=== PATIENT | male | born 1960 | race Two or more races ===

== ENCOUNTER 2024-06-19 14:29 | Inpatient (IN) | payer OTHER, MEDICARE, MEDICAID ==
[~2024-06-19] VITALS: Ht 182.9 cm; Wt 92.4 kg
[~2024-06-19 14:29] MED LIST: CARV6.2551 PO; CHOL50007 PO; FURO40TA4 PO; LOSA-533 PO; MAGN400T6 PO; SPIR25TA8 PO
--- NOTE | 2024-06-19 14:43 | ED.PDOC ---
Altered Mental Status HPI Comments 63 year old male JADEN presents to the ED with chief complaint of ALOC. EMS reports patient is coming from an assisted living facility where a poor history of obtained by staff with their initial call noting cardiac arrest with apneic episodes. EMS relays that staff informed them patient was last seen normal and a ble to speak/respond at 8am, but over the past 4 hours, patient became increasingly confused and altered until 30 minutes prior to their arrival, he began to experience apneic episodes. EMS states patient is only able to respond to painful stimuli and is non-verbal at this time. EMS note patient's BG was 106 and he is currently a full code. Patient unable to provide any history at this time. Time Seen by MD: 14:39 Reviewed Notes: Nurses Notes, Boom Worker Notes, Medications, Allergies Information Source: Emergency Med Personnel Mode of Arrival: EMS Severity: Unresponsive Timing: Hours Duration: Since onset Prehospital treatment: Accucheck, Oxygen Quality: Decreased Alertness, Change in Behavior Recent: None History of: CVA Past Medical History PAST MEDICAL HISTORY: CVA, NE, PE Surgical History: Unknown Family History Family History: Reviewed,noncontributory to illness Social History Smoker: Non-Smoker Alcohol: Denies ETOH Use Drugs: Denies Drug Use Lives In: Assisted Care Unable to Obtain due to: Altered Mental Status All Other Systems: Reviewed and Negative Physical Exam General Appearance: Moderate Distress, Obese HEENT: Normal ENT Inspection, Pharynx Normal, TMs Normal Neck: Full Range of Motion, Non-Tender, Normal, Normal Inspection Respiratory: No Accessory Muscle Use, Rales, Respiratory Distress Cardiovascular: No Edema, No JVD, No Murmur, No Gallop, Normal Peripheral Pulses, Regular Rate/Rhythm Breast Exam: Deferred Gastrointestinal: No Organomegaly, Non Tender, No Pulsatile Mass, Normal Bowel Sounds, Soft Genitalia: Deferred Pelvic: Deferred Rectal: Deferred Extremities: No calf tenderness, Normal capillary refill, Pedal edema Musculoskeletal : Apperance: Normal Neurologic: rn residential II-XII nml as Tested, Motor Weakness, Normal Affect, Normal Mood, No Sensory Deficits, Other (The patient was confused) Cerebellar Function: Unable to Test Reflexes: Normal Skin: Dry, Pallor, Warm Lymphatic: No Adenopathy EKG EKG : Pulse Rate (adult): 80 [place]: Normal Cardiac Rhythm: NSR ST: Nonsp Was a procedure done? Was a procedure done?: No Sedation Sedation?: No Differential Diagnosis (ALOC) Differential Diagnosis: Dehydration, Hypoglycemia, Hypoxemia, CVA X-Ray, Labs, Meds, VS Vital Signs Date Time Temp Pulse Resp B/P (MAP) Pulse Ox O2 Delivery O2 Flow Rate FiO2 06/19/24 15:51 147/105 06/19/24 15:36 91 06/19/24 14:33 80 Lab Test 06/19/24 16:06 06/19/24 15:12 06/19/24 15:08 Range/Units Troponin I High Sensitivity Pending 19 </=54 ng/L Blood Gas Specimen Type Arterial Blood Gas Sample Site Right brachial Blood Gas Patient Temperature 37.0 Arterial Blood Date Drawn [id number] Arterial Blood pH 7.454 H 7.350-7.450 Arterial Blood Partial Pressure CO2 24.4 L 35.0-48.0 mmHg Arterial Blood Partial Pressure O2 65.5 L 83.0-108.0 mmHg Arterial Blood HCO3 16.7 L 21.0-28.0 mmol/L Arterial Blood Oxygen Saturation 94.0 94.0-98.0 % Arterial Blood Base Excess -4.6 L -2.0-3.0 mmol/L Arterial Blood Oxyhemoglobin 92.2 L 94.0-98.0 % Arterial Blood Carboxyhemoglobin 1.4 0.5-1.5 % Arterial Blood Methemoglobin 0.5 0.0-1.5 % Mitesh Test N/a Blood Gas Total Hemoglobin 18.40 *H 13.5-17.5 g/dL Blood Gas Modality Room air FiO2 % 21.0 Blood Gas Critical Value Read Back Yes Blood Gas Notified Whom Dr. bonilla Blood Gas Notified Time [id number] Blood Gas Notified By White Blood Count 9.3 4.4-10.8 10^3/uL Red Blood Count 5.94 H 4.5-5.90 10^6/uL Hemoglobin 17.9 H 13.5-17.5 g/dL Hematocrit 56.7 H 41.0-53.0 % Mean Corpuscular Volume 95.4 80.0-100.0 fL Mean Corpuscular Hemoglobin 30.2 28.0-32.0 pg Mean Corpuscular Hemoglobin Concent 31.6 L 32.0-36.0 g/dL Red Cell Distribution Width 21.8 H 11.8-14.3 % Platelet Count 231 140-450 10^3/uL Mean Platelet Volume 9.6 6.9-10.8 fL Neutrophils (%) (Auto) 77.2 37.0-80.0 % Lymphocytes (%) (Auto) 11.7 10.0-50.0 % Monocytes (%) (Auto) 9.0 0.0-12.0 % Eosinophils (%) (Auto) 1.2 0.0-7.0 % Basophils (%) (Auto) 0.9 0.0-2.0 % Neutrophils # (Auto) 7.2 1.6-8.6 10 ^3/uL Lymphocytes # (Auto) 1.1 0.4-5.4 10 ^3/uL Monocytes # (Auto) 0.8 0-1.3 10 ^3/uL Eosinophils # (Auto) 0.1 0-0.8 10 ^3/uL Basophils # (Auto) 0.1 0-0.2 10 ^3/uL Nucleated Red Blood Cells 0.1 % Sodium Level 151 H 136-145 mmol/L Potassium Level 4.9 3.5-5.1 mmol/L Chloride Level 116 H 98-107 mmol/L Carbon Dioxide Level 24 20-31 mmol/L Anion Gap 11 5-15 Blood Urea Nitrogen 16 9-23 mg/dL Creatinine 1.18 0.700-1.30 mg/dL Glomerular Filtration Rate Calc 69 >90 mL/min BUN/Creatinine Ratio 13.6 10.0-20.0 Serum Glucose 97 74-106 mg/dL Lactic Acid Level 4.1 *H 0.4-2.0 mmol/L Calcium Level 10.2 8.7-10.4 mg/dL Plasma/Serum Blood Alcohol 7.3 <10 mg/dL Current Medications Medications (Trade) Dose Ordered Sig/Rose Marie Route Start Time Stop Time Status Last Admin Naloxone HCl (Narcan) 2 mg ONCE ONCE IV 06/19/24 15:30 06/19/24 15:31 DC 06/19/24 14:46 Furosemide (Lasix Injection) 40 mg ONCE ONCE IV 06/19/24 15:45 06/19/24 15:46 DC 06/19/24 15:51 Ceftriaxone Sodium 50 ml @ 100 mls/hr ONCE ONCE IV 06/19/24 16:30 06/19/24 16:59 06/19/24 16:[address] indicates: Hypodense changes in the superior right frontal lobe with loss of valle-white matter differentiation suggestive of an age-indeterminate infarct. Clinical correlation and further evaluation with MRI brain with diffusion-weighted imaging is recommended. There is no acute intracranial hemorr trisha. The patient had a chest x-ray done and it shows the pulmonary vascular congestion with possible failure The patient was given Lasix 40 mg IV push The patient's lactic acid level is elevated The patient was given vancomycin and Rocephin Initially the patient was given Narcan for the altered mental status with no signs of any change The patient's CBC is within normal limits The chemistry panel is within normal limits The ABG shows a pCO2 of 24 and a PO2 of 65 The patient was being placed on oxygen at this time. At this time, the patient will be admitted to the hospitalist The diagnosis is most likely a combination of sepsis and acute on chronic diastolic heart failure. Images Reviewed?: Images reviewed and evaluated by me Time of 1ST Reevaluation: 16:42 Reevaluation 1ST: Improved Patient Education/Counseling: Pt Unresponsive Family Education/Counseling: No Family Present Departure 1 Departure Time of Disposition: 16:39 Impression: Primary Impression: Altered mental status Qualified Codes: R41.82 - Altered mental status, unspecified Additional Impression: Acute on chronic diastolic heart failure Disposition: ADMITTED INPATIENT Admit to: [facility] Condition: Fair Critical Care Note Critical Care Time?: Yes (45 min-critical care time only) Stability Stability form required: Yes Unstable for transfer: Telemetry monitoring (Telemetry monitoring required), ED Physician Assesment (Clinical assesment) Heart Score Heart Score: Heart Score Response (Comments) Value History N/A 0 EKG N/A 0 Age N/A 0 Risk Factors N/A 0 Troponin N/A 0 Total 0 I personally scribed for YON BONILLA MD ([email or web address]) on 06/19/24 at 14:43. Electronically submitted by Chas Guerrero ([email or web address]). I personally scribed for YON BONILLA MD ([email or web address]) on 06/19/24 at 15:16. Electronically submitted by Chas Guerrero ([email or web address]). YON BONILLA MD Jun 19, 2024 14:43
[2024-06-19] MEDS: NALOXONE HCL 1MG/ML 2ML SYRINGE ONE (14:45)
[2024-06-19] MEDS: NALOXONE HCL 1MG/ML 2ML SYRINGE IV ONE (14:46)
--- NOTE | 2024-06-19 15:12 | DVH ---
EXAM: CT HEAD WITHOUT CONTRAST HISTORY: aloc COMPARISON: None TECHNIQUE: Axial images of the head were obtained and reformatted in coronal and sagittal planes. All CT scans at this medical facility are performed using dose modulation techniques as appropriate t o a performed exam including the following: Automated exposure control was utilized; adjustment of th e MA and/or KV according to patient size; and use of iterative reconstruction technique. CT Dose: CTDI volume is 59 mGy. Dose-length product is 1295 mGy*cm FINDINGS: The CT images are degraded by motion artifact. There is dugh-ex-yibhmuho generalized parenchymal volu me loss. There are hypodense changes in the superior right frontal lobe with loss of valle-white matte r differentiation (axial images 54 through 56). This is suggestive of an age-indeterminate infarct. T here is a small chronic infarct adjacent to the frontal horn of the right lateral ventricle. There is no evidence of acute intracranial hemorrhage, mass, mass effect midline shift. There is no hydroceph alus or extra-axial fluid collection. The visualized paranasal sinuses and mastoid air cells are clear. The calvarium is intact. IMPRESSION: 1. Hypodense changes in the superior right frontal lobe with loss of valle-white matter differentiatio n suggestive of an age-indeterminate infarct. Clinical correlation and further evaluation with MRI br ain with diffusion-weighted imaging is recommended. There is no acute intracranial hemorrhage. HS:Y
[2024-06-19 15:15] VITALS: PULSE 93; RESP 52; O2SAT 74
[2024-06-19 15:25] LABS: Base Excess -4.6 mmol/L (-2.0-3.0)
[2024-06-19] MEDS: NALOXONE HCL 0.4 MG/ML VIAL IV ONE (15:25)
--- NOTE | 2024-06-19 15:26 | DVH ---
CHEST RADIOGRAPH Indication: aloc Technique: Single frontal view of the chest was obtained Comparison: None FINDINGS: Lines and Tubes: None Lungs: Diffuse interstitial prominence with right basilar opacification and obscuration of the right hemidiaphragm. No pneumothorax. Cardiomediastinal contours: Moderate cardiomegaly Bones: No acute osseous abnormality. IMPRESSION: Moderate cardiomegaly with pulmonary vascular congestion and small right-sided pleural effusion.
[2024-06-19 15:39] LABS: Basophils # (auto) 0.1 10 ^3/uL (0-0.2); Basophils % (auto) 0.9 % (0.0-2.0); Eosinophils # (auto) 0.1 10 ^3/uL (0-0.8); Hemoglobin 17.9 g/dL (13.5-17.5); Mean Corpuscular Hgb Conc. 31.6 g/dL (32.0-36.0); Monocytes # (auto) 0.8 10 ^3/uL (0-1.3); Neutrophils # (auto) 7.2 10 ^3/uL (1.6-8.6)
--- NOTE | 2024-06-19 15:39 | ECG ---
[facility] Test Date: 2024-06-19 Test Time: 15:36:52 Pat Name: KRISTAL QUINONES Department: er Room: 0251T Gender: M Groutman: marie : 1960 Requested By: YON IRELAND Order Number: [id number] Reading MD: Rios Viera Measurements Intervals [place] Rate: 91 P: 38 WI: 186 QRS: 154 QRSD: 107 T: -5 QT: 383 QTc: 472 Interpretive Statements Sinus rhythm Probable left atrial enlargement Inferior infarct, old Anterior infarct, old Electronically Signed On 06-22-2024 10:24:06 PST by Rios Viera Please click the below link to view image of tracing.
[2024-06-19 15:41] LABS: Eosinophils % (auto) 1.2 % (0.0-7.0); Lymphocytes # (auto) 1.1 10 ^3/uL (0.4-5.4); Lymphocytes % (auto) 11.7 % (10.0-50.0); Mean Corpuscular Hemoglobin 30.2 pg (28.0-32.0); Mean Corpuscular Volume 95.4 fL (80.0-100.0); Neutrophils % (auto) 77.2 % (37.0-80.0); Nucleated Red Blood Cells % 0.1 %; Platelet Count (auto) 231 10^3/uL (140-450); Red Blood Cells 5.94 10^6/uL (4.5-5.90); White Blood Cell 9.3 10^3/uL (4.4-10.8)
[2024-06-19 15:45] LABS: Hematocrit 56.7 % (41.0-53.0); Red Cell Distribution Width 21.8 % (11.8-14.3)
[2024-06-19] MEDS: FUROSEMIDE 40 MG/4 ML VIAL IV ONE (15:51)
[2024-06-19 15:52] LABS: Potassium 4.9 mmol/L (3.5-5.1)
[2024-06-19 15:53] LABS: Anion Gap 11 (5-15); Calcium 10.2 mg/dL (8.7-10.4); Carbon Dioxide 24 mmol/L (20-31)
[2024-06-19 15:58] LABS: BUN/Creatinine Ratio 13.6 (10.0-20.0); Blood Alcohol 7.3 mg/dL (<10); Blood Urea Nitrogen 16 mg/dL (9-23); Glucose 97 mg/dL (74-106)
[2024-06-19 16:00] LABS: Chloride 116 mmol/L (98-107); Sodium 151 mmol/L (136-145)
[2024-06-19 16:18] LABS: Lactic Acid w/Reflex 4.1 mmol/L (0.4-2.0)
[2024-06-19] MEDS: cefTRIAXone 1GM/50ML D5W 50 ML IV ONE (16:39)
[2024-06-19] MEDS: VANCOMYCIN 1GM/250ML KIT 250 ML IV ONE (16:51)
[2024-06-19] MEDS: SODIUM CHLORIDE 0.9% 500 ML IV ONE (16:52)
[2024-06-19 17:03] LABS: Urine Bacteria None Seen /hpf (None Seen)
[2024-06-19 17:24] LABS: Urine Blood Negative /uL (Negative); Urine Clarity Clear (Clear); Urine Color Yellow (Yellow); Urine Hyaline Cast FEW /lpf (0 - 2); Urine Mucus FEW (None Seen); Urine Protein, UAD 1+ (Negative); Urine Specific Gravity 1.018 (1.001-1.035); Urine Squamous Epithelial Cell None Seen /hpf (<5); Urine Urobilinogen 4 mg/dL (Negative); Urine WBC 5 /hpf (0 - 3); Urine pH 6.5 (5.0-9.0)
[2024-06-19 17:32] LABS: Amphetamine Screen, Urine Neg (NEGATIVE); Barbiturate Scree,Urine Neg (NEGATIVE); Benzodiazephine Screen, Urine Neg (NEGATIVE); Cannabinoid Screen, Urine Pos (NEGATIVE); Cocaine Screen, Urine Neg (NEGATIVE); Opiate Scree,Urine Pos (NEGATIVE); Phencyclidine Screen, Urine Neg (NEGATIVE)
[2024-06-19] MEDS ORDERED: ONDANSETRON HCL 4 MG/2 ML VIAL IV PRN (19:15)
[2024-06-19] MEDS ORDERED: MORPHINE SULFATE INJ 2 MG/ml SYRG IV PRN (19:15)
[2024-06-19] MEDS ORDERED: NITROGLYCERIN 0.4 MG SL TAB SL PRN (19:15)
[2024-06-19 19:30] VITALS: PULSE 71; RESP 23; O2SAT 100
[2024-06-19 21:11] VITALS: BP 133/85; PULSE 71; RESP 18; TEMP 98.2; O2SAT 96
--- NOTE | 2024-06-19 22:52 | ECG ---
[facility] Test Date: 2024-06-19 Test Time: 14:33:48 Pat Name: KRISTAL QUINONES Department: er [facility] Gender: M Global Position System Technician: marie : 1960 Requested By: YON IRELAND Order Number: [id number] Reading MD: Rios Viera Measurements Intervals [place] Rate: 80 P: 132 CO: 188 QRS: 17 QRSD: 109 T: 186 QT: 420 QTc: 485 Interpretive Statements Sinus rhythm Probable left atrial enlargement Anterior infarct, old Nonspecific T abnormalities, lateral leads Electronically Signed On 06-22-2024 10:24:04 PST by Rios Viera Please click the below link to view image of tracing.
[2024-06-20] VITALS (7 sets, daily range): BP systolic 107–147; BP diastolic 64–94; PULSE 63–79; RESP 18–24; TEMP 96.4–98.9; O2SAT 94–98
--- NOTE | 2024-06-20 04:51 | DVHHP2 ---
History of Present Illness Reason for Visit: Altered mental status. History of Present Illness 63-year-old male presents for evaluation of altered mental status. Patient presented from an assisted living facility after staff noted patient becoming progressively more confused and having apneic episodes. Patient currently nonve rbal. No further history could be obtained at the moment. Past Medical History PE, mi, CVA,? Dementia Past Surgical History Unknown Family History Unknown Lives: [facility] Review of Systems Review of Systems Review of systems are limited due to the patient's altered mental status. Allergies: Coded Allergies: Codeine (Verified Allergy, Unknown, 06/19/24) Ibuprofen (Verified Allergy, Unknown, 06/19/24) Medications Current Medications Medications Dose Ordered Sig/Rose Marie Route Start Time Stop Time Status Last Admin Dose Admin Ondansetron HCl 4 mg Q4HP PRN IV 06/19/24 19:15 Enoxaparin Sodium 40 mg DAILY SC 06/20/24 10:00 Acetaminophen 650 mg Q6HP PRN PO 06/19/24 19:15 Nitroglycerin 0.4 mg Q5MINP PRN SL 06/19/24 19:15 Morphine Sulfate 2 mg Q30M PRN IV 06/19/24 19:15 Exam Vital Signs Vital Signs Date Time Temp Pulse Resp B/P (MAP) Pulse Ox O2 Delivery O2 Flow Rate FiO2 06/20/24 01:00 98.0 79 20 128/72 (90) 95 98.0 06/19/24 21:11 Nasal Cannula* 2 28 Exam Gen: 63-year-old male in mild distress Skin: Warm, dry, normal color and texture, no rash. HEENT: Normocephalic atraumatic, mucous membranes moist and pink. Neck: Cervical and supraclavicular nodes normal without enlargement, trachea is midline, thyroid gland is normal without masses. Pulmonary: Clear to auscultation and percussion bilaterally. Cardiac: Regular rate and rhythm. No murmur Abdomen: Soft, nontender, nondistended, bowel sounds present all 4 quadrants, no guarding, no rigidity, no organomegaly. Extremities: No cyanosis, clubbing, no edema Neuro: Lethargic, no focal motor deficits. Labs/Xrays ORDERING PHYSICIAN: YON IRELAND MD PROCEDURE(s): CXRP - CHEST PORTABLE REASON: aloc ORDER NUMBER(s): [id number], ACCESSION NUMBER(s): [id number] CHEST RADIOGRAPH Indication: aloc Technique: Single frontal view of the chest was obtained Comparison: None FINDINGS: Lines and Tubes: None Lungs: Diffuse interstitial prominence with right basilar opacification and obscuration of the right hemidiaphragm. No pneumothorax. Cardiomediastinal contours: Moderate cardiomegaly Bones: No acute osseous abnormality. IMPRESSION: Moderate cardiomegaly with pulmonary vascular congestion and small right-sided pleural effusion. RING PHYSICIAN: YON IRELAND MD PROCEDURE(s): HWOCT - HEAD WITHOUT CONTRAST REASON: aloc ORDER NUMBER(s): [id number], ACCESSION NUMBER(s): [id number] EXAM: CT HEAD WITHOUT CONTRAST HISTORY: aloc COMPARISON: None TECHNIQUE: Axial images of the head were obtained and reformatted in coronal and sagittal planes. All CT scans at this medical facility are performed using dose modulation techn iques as appropriate to a performed exam including the following: Automated exposure control was utilized; adjustment of the MA and/or KV according to patient size; and use of iterative reconstruction technique. CT Dose: CTDI volume is 59 mGy. Dose-length product is 1295 mGy*cm FINDINGS: The CT images are degraded by motion artifact. There is [id number] generalized parenchymal volume loss. There are hypodense changes in the superior right frontal lobe with loss of valle-white matter differentiation (axial images 54 through 56). This is suggestive of an age-indeterminate infarct. There is a small chronic infarct adjacent to the frontal horn of the right lateral ventricle. There is no evidence of acute intracranial hemorrhage, mass, mass effect midline shift. There is no hydrocephalus or extra-axial fluid collection. The visualized paranasal sinuses and mastoid air cells are clear. The calvarium is intact. IMPRESSION: 1. Hypodense changes in the superior right frontal lobe with loss of valle-white matter differentiation suggestive of an age-indeterminate infarct. Clinical correlation and further evaluation with MRI brain with diffusion-weighted imaging is recommended. There is no acute intracranial hemorrhage. HS:Y Labs Test 06/19/24 18:06 06/19/24 17:23 06/19/24 17:02 06/19/24 15:12 Range/Units Lactic Acid Level 1.3 0.4-2.0 mmol/L Troponin I High Sensitivity 18 </=54 ng/L POC Glucose 132 H 70-106 mg/dl Urine Color Yellow Yellow Urine Clarity Clear Clear Urine pH 6.5 5.0-9.0 Urine Specific [place] 1.018 1.001-1.035 Urine Protein 1+ H Negative Urine Ketones Negative Negative Urine Blood Negative Negative /uL Urine Nitrite Negative Negative Urine Bilirubin Negative Negative Urine Urobilinogen 4 H Negative mg/dL Urine Leukocyte Esterase Negative Negative /uL Urine RBC 1 0 - 3 /hpf Urine WBC 5 0 - 3 /hpf Urine Squamous Epithelial Cells None seen <5 /hpf Urine Bacteria None seen None Seen /hpf Urine Hyaline Casts Few 0 - 2 /lpf Urine Mucus Few None Seen Urine Glucose Normal Normal mg/dL Urine Opiates Screen Pos NEGATIVE Urine Fentanyl Screen Neg NEGATIVE Urine Barbiturates Screen Neg NEGATIVE Urine Phencyclidine Screen Neg NEGATIVE Urine Amphetamines Screen Neg NEGATIVE Urine Benzodiazepines Screen Neg NEGATIVE Urine Cocaine Screen Neg NEGATIVE Urine Cannabinoids Screen Pos NEGATIVE Blood Gas Specimen Type Arterial Blood Gas Sample Site Right brachial Blood Gas Patient Temperature 37.0 Arterial Blood Date Drawn [id number] Arterial Blood pH 7.454 H 7.350-7.450 Arterial Blood Partial Pressure CO2 24.4 L 35.0-48.0 mmHg Arterial Blood Partial Pressure O2 65.5 L 83.0-108.0 mmHg Arterial Blood HCO3 16.7 L 21.0-28.0 mmol/L Arterial Blood Oxygen Saturation 94.0 94.0-98.0 % Arterial Blood Base Excess -4.6 L -2.0-3.0 mmol/L Arterial Blood Oxyhemoglobin 92.2 L 94.0-98.0 % Arterial Blood Carboxyhemoglobin 1.4 0.5-1.5 % Arterial Blood Methemoglobin 0.5 0.0-1.5 % Mitesh Test N/a Blood Gas Total Hemoglobin 18.40 *H 13.5-17.5 g/dL Blood Gas Modality Room air FiO2 % 21.0 Blood Gas Critical Value Read Back Yes Blood Gas Notified Whom Dr. [place] Blood Gas Notified Time [id number] Blood Gas Notified By Test 06/19/24 15:08 Range/Units White Blood Count 9.3 4.4-10.8 10^3/uL Red Blood Count 5.94 H 4.5-5.90 10^6/uL Hemoglobin 17.9 H 13.5-17.5 g/dL Hematocrit 56.7 H 41.0-53.0 % Mean Corpuscular Volume 95.4 80.0-100.0 fL Mean Corpuscular Hemoglobin 30.2 28.0-32.0 pg Mean Corpuscular Hemoglobin Concent 31.6 L 32.0-36.0 g/dL Red Cell Distribution Width 21.8 H 11.8-14.3 % Platelet Count 231 140-450 10^3/uL Mean Platelet Volume 9.6 6.9-10.8 fL Neutrophils (%) (Auto) 77.2 37.0-80.0 % Lymphocytes (%) (Auto) 11.7 10.0-50.0 % Monocytes (%) (Auto) 9.0 0.0-12.0 % Eosinophils (%) (Auto) 1.2 0.0-7.0 % Basophils (%) (Auto) 0.9 0.0-2.0 % Neutrophils # (Auto) 7.2 1.6-8.6 10 ^3/uL Lymphocytes # (Auto) 1.1 0.4-5.4 10 ^3/uL Monocytes # (Auto) 0.8 0-1.3 10 ^3/uL Eosinophils # (Auto) 0.1 0-0.8 10 ^3/uL Basophils # (Auto) 0.1 0-0.2 10 ^3/uL Nucleated Red Blood Cells 0.1 % Sodium Level 151 H 136-145 mmol/L Potassium Level 4.9 3.5-5.1 mmol/L Chloride Level 116 H 98-107 mmol/L Carbon Dioxide Level 24 20-31 mmol/L Anion Gap 11 5-15 Blood Urea Nitrogen 16 9-23 mg/dL Creatinine 1.18 0.700-1.30 mg/dL Glomerular Filtration Rate Calc 69 >90 mL/min BUN/Creatinine Ratio 13.6 10.0-20.0 Serum Glucose 97 74-106 mg/dL Calcium Level 10.2 8.7-10.4 mg/dL B-Type Natriuretic Peptide 2669.91 0-100 pg/mL Plasma/Serum Blood Alcohol 7.3 <10 mg/dL Assessment/Plan Assessment/Plan Assessment Acute encephalopathy Rule out CVA Acute on chronic congestive heart failure Plan Admit the patient to telemetry to the hospitalist Resume home medications Echocardiogram pending IV Lasix MRI of the brain pending Continue treatment per orders. Plan discussed with: Patient My Orders Orders - MIL MACK Procedure Category Date Status Time Basic Metabolic Panel LAB 06/20/24 Logged 04:00 Admit ADMIT 06/19/24 Transmitted 19:15 Ondansetron Hcl PHA 06/19/24 In Process (Zofran) 19:15 Enoxaparin Sodium PHA 06/20/24 In Process (Lovenox) 10:00 Complete Blood Count LAB 06/20/24 Logged 04:00 Cardiac DIET 06/20/24 Transmitted Diet-2gna,Lofat,Lochol Breakfast Echo 2d Mode Cardiac US 06/19/24 Logged DOP 19:15 Condition: Fair TOÑO 06/19/24 In Process 19:15 Acetaminophen Tablet PHA 06/19/24 In Process (Tylenol Tablet) 19:15 Bedrest With Bathroom TOÑO 06/19/24 In Process Privileg 19:[address] [facility] 06/19/24 In Process Sublingual (Ntrostat 19:15 Morphine Sulfate PHA 06/19/24 In Process Injection 19:15 Stat Ekg For Chest [facility] 06/19/24 In Process Pain 19:15 Notify Md Of Changes [facility] 06/19/24 In Process From Base 19:15 Testing Lead For [facility] 06/19/24 In Process 24 Hours 19:15 Emergency Dysrhythmia [facility] 06/19/24 In Process Protocol 19:15 Rhythm Strips Once [facility] 06/19/24 In Process Every Shift 19:15 Oxygen By Nasal RT 06/19/24 Transmitted Cannula 19:15 Date of Service: Jun 19, 2024 Billing Provider: MIL MACK Common Visit Codes: [id number] INP/OBS CARE (HIGH) MIL MACK Jun 20, 2024 04:51
[2024-06-20] MEDS: FUROSEMIDE 20 MG/2 ML VIAL IV SCH (06:20)
[2024-06-20 07:45] LABS: Potassium 3.7 mmol/L (3.5-5.1)
[2024-06-20 07:46] LABS: Anion Gap 11 (5-15); Carbon Dioxide 27 mmol/L (20-31)
[2024-06-20 07:47] LABS: Calcium 9.8 mg/dL (8.7-10.4)
[2024-06-20 07:50] LABS: Chloride 115 mmol/L (98-107); Sodium 153 mmol/L (136-145)
[2024-06-20 07:52] LABS: BUN/Creatinine Ratio 17.2 (10.0-20.0); Blood Urea Nitrogen 20 mg/dL (9-23); Glucose 90 mg/dL (74-106)
[2024-06-20 08:21] LABS: Basophils # (auto) 0.1 10 ^3/uL (0-0.2); Basophils % (auto) 0.6 % (0.0-2.0); Eosinophils # (auto) 0.1 10 ^3/uL (0-0.8); Eosinophils % (auto) 0.7 % (0.0-7.0); Hematocrit 53.1 % (41.0-53.0); Hemoglobin 17.2 g/dL (13.5-17.5); Lymphocytes # (auto) 0.7 10 ^3/uL (0.4-5.4); Lymphocytes % (auto) 7.2 % (10.0-50.0); Mean Corpuscular Hemoglobin 30.3 pg (28.0-32.0); Mean Corpuscular Hgb Conc. 32.4 g/dL (32.0-36.0); Mean Corpuscular Volume 93.4 fL (80.0-100.0); Monocytes # (auto) 0.8 10 ^3/uL (0-1.3); Monocytes % (auto) 9.2 % (0.0-12.0); Neutrophils # (auto) 7.6 10 ^3/uL (1.6-8.6); Neutrophils % (auto) 82.3 % (37.0-80.0); Nucleated Red Blood Cells % 0.3 %; Platelet Count (auto) 207 10^3/uL (140-450); Red Blood Cells 5.68 10^6/uL (4.5-5.90); Red Cell Distribution Width 20.3 % (11.8-14.3); White Blood Cell 9.2 10^3/uL (4.4-10.8)
[2024-06-20] MEDS: SPIRONOLACTONE 25 MG TAB PO SCH (10:00)
[2024-06-20] MEDS: CARVEDILOL 3.125 MG TAB PO SCH (10:00)
[2024-06-20] MEDS: LOSARTAN POTASSIUM 25 MG TAB PO SCH (10:00)
[2024-06-20] MEDS: ENOXAPARIN SOD 40 MG/0.4 ML SYRINGE SC SCH (10:29)
[2024-06-20] MEDS: OPTISON 3ml Vial for INJ IV ONE (10:30)
--- NOTE | 2024-06-20 14:20 | DVHSR ---
APPROVED REPORT EXAM: Two-dimensional and M-mode echocardiogram with Doppler, color Doppler and Optison. Blood Pressure: 107/61 mmHg INDICATION EF RISK FACTORS Height: 6', Weight: 211 DIMENSIONS LVDd6.3 (3.8-5.7cm)LA (2D)4.7 (1.9-4.0cm)Aortic Root3.1 (2.0-3.7cm) LVDs5.4 (2.5-4.0cm)LA (MM) (1.9-4.0cm)Aortic Cusp Exc1.7 (1.5-2.0cm) EF (%) 28.0 (55-70%)Rt. Atrium5.0 (1.9-4.0cm)Asc. Aorta cm IVSd1.1 (0.7-1.1cm)RV (D)6.0 (1.8-2.4cm) PWd0.8 (0.7-1.1cm) Mitral Valve MitralMitral Stenosis E wave0.94m/sMV Mean GR.mmHg A wave0.47m/sMV Peak GR.mmHg E/A ratio2.02D MVAcm2 DECEL [id number] 1/2 Timems Aortic Valve Aortic ValveAortic Stenosis V10.79m/Juana Mean GR.4mmHg V21.33m/Juana Peak GR.7mmHg LVOT Diameter2.4 (1.8-2.4cm)Doppler AVA2.69cm2 Pulmonic Valve V20.70m/s Tricuspid Valve TR Velocity3.19m/s [id number] Other Information Quality : Technically LimitedRhythm : Technically limited study due to body habitus, pt position, moving and breathing pattern Conclusion Severely dilated left ventricle. Severely reduced left ventricular systolic function estimated eject ion fraction of 25%. There is a globular echodense structure seen in the left ventricular apical are a measuring 2.3 x 1.5 cm, likely representing left ventricular mural thrombus. There is a grade 2 di astolic dysfunction. Severely dilated right ventricle. Severely reduced right ventricular systolic function. Moderately dilated right and left atria. The aortic valve appears normal structure and function. The mitral valve is normal structure and function. Tricuspid valve appears normal in structure and function. The pulmonary valve is grossly normal. No pericardial effusion.
--- NOTE | 2024-06-20 14:59 | DVHPN2 ---
Reviewed: Care Plan, H&P, Labs, Medications, Previous Orders, Radiology Changes from previous H/P or p: No Changes Objective Vitals Vital Signs Date Time Temp Pulse Resp B/P (MAP) Pulse Ox O2 Delivery O2 Flow Rate FiO2 06/20/24 13:00 97.0 66 20 139/86 (103) 94 97.0 06/20/24 07:50 Nasal Cannula* 3 32 Intake/Output Intake and Output 06/20/24 07:00 Intake Total 800 ml Output Total 3800 ml Balance -3000 ml Intake Oral 0 ml IV Total 800 ml Output Urine Total 3800 ml Medications Current Medications Medications Dose Ordered Sig/Rose Marie Route Start Time Stop Time Status Last Admin Dose Admin Ondansetron HCl 4 mg Q4HP PRN IV 06/19/24 19:15 Enoxaparin Sodium 40 mg DAILY SC 06/20/24 10:00 06/20/24 10:29 40 MG Acetaminophen 650 mg Q6HP PRN PO 06/19/24 19:15 Nitroglycerin 0.4 mg Q5MINP PRN SL 06/19/24 19:15 Morphine Sulfate 2 mg Q30M PRN IV 06/19/24 19:15 Furosemide 20 mg BIDD IV 06/20/24 06:00 06/20/24 06:20 20 MG Carvedilol 6.25 mg Q12HR PO 06/20/24 10:00 Losartan Potassium 25 mg DAILY PO 06/20/24 10:00 Spironolactone 25 mg DAILY PO 06/20/24 10:00 Laboratory Results Laboratory Tests 06/20/24 07:15 Chemistry Test 06/19/24 15:08 06/20/24 07:15 Calcium Level 10.2 mg/dL (8.7-10.4) 9.8 mg/dL (8.7-10.4) Cardiac Markers Test 06/19/24 15:08 B-Type Natriuretic Peptide 2669.91 pg/mL (0-100) Urinalysis Test 06/19/24 17:02 Urine Color Yellow (Yellow) Urine Clarity Clear (Clear) Urine pH 6.5 (5.0-9.0) Urine Specific [place] 1.018 (1.001-1.035) Urine Protein 1+ (Negative) H Urine Ketones Negative (Negative) Urine Blood Negative /uL (Negative) Urine Nitrite Negative (Negative) Urine Bilirubin Negative (Negative) Urine Urobilinogen 4 mg/dL (Negative) H Urine Leukocyte Esterase Negative /uL (Negative) Urine RBC 1 /hpf (0 - 3) Urine WBC 5 /hpf (0 - 3) Urine Squamous Epithelial Cells None seen /hpf (<5) Urine Bacteria None seen /hpf (None Seen) Urine Hyaline Casts Few /lpf (0 - 2) Urine Mucus Few (None Seen) Urine Glucose Normal mg/dL (Normal) Blood Gas Results Test 06/19/24 15:12 Arterial Blood pH 7.454 (7.350-7.450) FiO2 % 21.0 Labs and/or images reviewed: Labs reviewed by me, Image(s) reviewed by me Assessment/Plan Assessment/Plan Sepsis secondary to acute urinary tract infection: Blood cultures urine cultures Acute urinary tract infection: Rocephin Acute metabolic encephalopathy Rule out CVA 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
[2024-06-20] MEDS: cefTRIAXone 1GM/50ML D5W 50 ML IV ONE (17:56)
[2024-06-20] MEDS: LORazepam 0.5 MG TAB PO PRN (21:09)
[2024-06-21] VITALS (8 sets, daily range): BP systolic 110–141; BP diastolic 66–80; PULSE 60–74; RESP 17–20; TEMP 97.4–98.7; O2SAT 94–97
--- NOTE | 2024-06-21 10:19 | DVHPN2 ---
Reviewed: Care Plan, H&P, Labs, Medications, Previous Orders, Radiology Changes from previous H/P or p: No Changes Objective Vitals Vital Signs Date Time Temp Pulse Resp B/P (MAP) Pulse Ox O2 Delivery O2 Flow Rate FiO2 06/21/24 09:00 97.8 71 19 141/72 (95) 94 97.8 06/20/24 20:00 Nasal Cannula* 3 32 Intake/Output Intake and Output 06/21/24 07:00 Intake Total 1180 ml Output Total 2800 ml Balance -1620 ml Intake Oral 1180 ml Output Urine Total 2800 ml Medications Current Medications Medications Dose Ordered Sig/Rose Marie Route Start Time Stop Time Status Last Admin Dose Admin Ondansetron HCl 4 mg Q4HP PRN IV 06/19/24 19:15 Enoxaparin Sodium 40 mg DAILY SC 06/20/24 10:00 06/20/24 10:29 40 MG Acetaminophen 650 mg Q6HP PRN PO 06/19/24 19:15 Nitroglycerin 0.4 mg Q5MINP PRN SL 06/19/24 19:15 Morphine Sulfate 2 mg Q30M PRN IV 06/19/24 19:15 Furosemide 20 mg BIDD IV 06/20/24 06:00 06/21/24 05:36 20 MG Carvedilol 6.25 mg Q12HR PO 06/20/24 10:00 06/20/24 21:09 6.25 MG Losartan Potassium 25 mg DAILY PO 06/20/24 10:00 Spironolactone 25 mg DAILY PO 06/20/24 10:00 Ceftriaxone Sodium 50 ml @ 100 mls/hr DAILY@09 IV 06/21/24 09:00 Lorazepam 0.5 mg Q12HP PRN PO 06/20/24 21:00 06/20/24 21:09 0.5 MG Laboratory Results Laboratory Tests 06/20/24 07:15 Urinalysis Test 06/19/24 17:02 Urine Color Yellow (Yellow) Urine Clarity Clear (Clear) Urine pH 6.5 (5.0-9.0) Urine Specific [place] 1.018 (1.001-1.035) Urine Protein 1+ (Negative) H Urine Ketones Negative (Negative) Urine Blood Negative /uL (Negative) Urine Nitrite Negative (Negative) Urine Bilirubin Negative (Negative) Urine Urobilinogen 4 mg/dL (Negative) H Urine Leukocyte Esterase Negative /uL (Negative) Urine RBC 1 /hpf (0 - 3) Urine WBC 5 /hpf (0 - 3) Urine Squamous Epithelial Cells None seen /hpf (<5) Urine Bacteria None seen /hpf (None Seen) Urine Hyaline Casts Few /lpf (0 - 2) Urine Mucus Few (None Seen) Urine Glucose Normal mg/dL (Normal) Microbiology Microbiology Date/Time Source Procedure Growth Status 06/19/24 15:08 Blood Blood Culture - Preliminary NO GROWTH AFTER 24 HOURS OF INCUBATION. 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 Alvarez pending Echo 25 % ejection fraction Left ventricular mural thrombus Time spent 45 minutes Advanced care planning time 20 minutes Patient is full code Patient came from board and care Patient is hospice revoked Plan discussed with: Patient My Orders Orders - NIEVES CHÁVEZ MD Procedure Category Date Status Time Urine Bacterial LIZA 06/20/24 Logged Culture 14:56 Ceftriaxone 1gm/50ml PHA 06/21/24 In Process D5w (Rocephin) 09:00 * Radio Performer CONS 06/20/24 Transmitted Consult Date of Service: Jun 21, 2024 Billing Provider: NIEVES CHÁVEZ MD Common Visit Codes: [id number] INP/OBS CARE(HIGH) NIEVES CHÁVEZ MD Jun 21, 2024 10:19
[2024-06-21] MEDS: cefTRIAXone 1GM/50ML D5W 50 ML IV SCH (10:22)
[2024-06-21] MEDS: FUROSEMIDE 20 MG/2 ML VIAL IV ONE (12:41)
--- NOTE | 2024-06-21 17:43 | DVHCONRES ---
Date Seen: Jun 21, 2024 Resident Creating Document: ADRIANA HARRY RESIDENT Referring Physician Yuan Thurston NP History of Present Illness This is 63-year-old male for whom cardiology was consult based on findings on echo. At the time of my visit, patient was lying bed with sitter present. He was not responding to all my questions, but he mentioned his name, date of and knew that he was at hospital but does not know why. Rest of the information was gathered from the patient's present medical records. Per the primary team, patient has a past medical history of PE, mi, CVA,?Dementia and he presented from an assisted living facility after staff noted patient becoming progressively more confused and having apneic episodes. At the hospital, patient was found to have sepsis due to UTI, elevated BNP and echo revealed PE, mi, CVA,? Dementia Past Surgical History Unknown Family History Unknown Lives: [facility] Past Medical History PE, mi, CVA,?Dementia Past Surgical History Unknown Family History: Patient reports no known family medical history. Family History Unknown Social History Lives: [facility] Allergies: Coded Allergies: Codeine (Verified Allergy, Unknown, 06/19/24) Ibuprofen (Verified Allergy, Unknown, 06/19/24) Current Medications Current Medications Medications (Trade) Dose Ordered Sig/Rose Marie Route PRN Reason Start Time Stop Time Status Last Admin Ceftriaxone Sodium 50 ml @ 100 mls/hr DAILY@09 IV 06/21/24 09:00 06/21/24 10:22 Lorazepam (Ativan Tablet) 0.5 mg Q12HP PRN PO ANXIETY 06/20/24 21:00 06/20/24 21:09 Sacubitril/ Valsartan (Entresto 24-26 Mg tab) 1 tab BID PO 06/21/24 22:00 Furosemide (Lasix Injection) 40 mg BIDD IV 06/21/24 18:00 Enoxaparin Sodium (Lovenox) 100 mg Q12HR SC 06/21/24 22:00 Vital Signs Vital Signs Date Time Temp Pulse Resp B/P (MAP) Pulse Ox O2 Delivery O2 Flow Rate FiO2 06/21/24 12:45 98.0 68 19 133/80 (97) 96 98.0 06/21/24 08:00 Nasal Cannula* 3 32 Physical Exam General examination- Not in acute distress, on 3L nasal oxygen HEENT: PEERLA, no acute nasal discharge Chest: S1-S2 audible, rate and rhythm regular, no murmur Lung:congestion Abdomen: Mildly distend, BS+, nontender, no organomegaly Musculoskeletal: no acute joint swelling or tenderness Lower extremity: no leg edema Neurological: unable to obtained Psychiatry-- unable to obtain Skin- scratches on his left leg Labs/Diagnostic Data Labs Test 06/20/24 07:15 06/19/24 18:06 06/19/24 17:23 06/19/24 17:02 Range/Units White Blood Count 9.2 4.4-10.8 10^3/uL Red Blood Count 5.68 4.5-5.90 10^6/uL Hemoglobin 17.2 13.5-17.5 g/dL Hematocrit 53.1 H 41.0-53.0 % Mean Corpuscular Volume 93.4 80.0-100.0 fL Mean Corpuscular Hemoglobin 30.3 28.0-32.0 pg Mean Corpuscular Hemoglobin Concent 32.4 32.0-36.0 g/dL Red Cell Distribution Width 20.3 H 11.8-14.3 % Platelet Count 207 140-450 10^3/uL Mean Platelet Volume 9.6 6.9-10.8 fL Neutrophils (%) (Auto) 82.3 H 37.0-80.0 % Lymphocytes (%) (Auto) 7.2 L 10.0-50.0 % Monocytes (%) (Auto) 9.2 0.0-12.0 % Eosinophils (%) (Auto) 0.7 0.0-7.0 % Basophils (%) (Auto) 0.6 0.0-2.0 % Neutrophils # (Auto) 7.6 1.6-8.6 10 ^3/uL Lymphocytes # (Auto) 0.7 0.4-5.4 10 ^3/uL Monocytes # (Auto) 0.8 0-1.3 10 ^3/uL Eosinophils # (Auto) 0.1 0-0.8 10 ^3/uL Basophils # (Auto) 0.1 0-0.2 10 ^3/uL Nucleated Red Blood Cells 0.3 % Sodium Level 153 H 136-145 mmol/L Potassium Level 3.7 3.5-5.1 mmol/L Chloride Level 115 H 98-107 mmol/L Carbon Dioxide Level 27 20-31 mmol/L Anion Gap 11 5-15 Blood Urea Nitrogen 20 9-23 mg/dL Creatinine 1.16 0.700-1.30 mg/dL Glomerular Filtration Rate Calc 71 >90 mL/min BUN/Creatinine Ratio 17.2 10.0-20.0 Serum Glucose 90 74-106 mg/dL Calcium Level 9.8 8.7-10.4 mg/dL Lactic Acid Level 1.3 0.4-2.0 mmol/L Troponin I High Sensitivity 18 </=54 ng/L POC Glucose 132 H 70-106 mg/dl Urine Color Yellow Yellow Urine Clarity Clear Clear Urine pH 6.5 5.0-9.0 Urine Specific [place] 1.018 1.001-1.035 Urine Protein 1+ H Negative Urine Ketones Negative Negative Urine Blood Negative Negative /uL Urine Nitrite Negative Negative Urine Bilirubin Negative Negative Urine Urobilinogen 4 H Negative mg/dL Urine Leukocyte Esterase Negative Negative /uL Urine RBC 1 0 - 3 /hpf Urine WBC 5 0 - 3 /hpf Urine Squamous Epithelial Cells None seen <5 /hpf Urine Bacteria None seen None Seen /hpf Urine Hyaline Casts Few 0 - 2 /lpf Urine Mucus Few None Seen Urine Glucose Normal Normal mg/dL Urine Opiates Screen Pos NEGATIVE Urine Fentanyl Screen Neg NEGATIVE Urine Barbiturates Screen Neg NEGATIVE Urine Phencyclidine Screen Neg NEGATIVE Urine Amphetamines Screen Neg NEGATIVE Urine Benzodiazepines Screen Neg NEGATIVE Urine Cocaine Screen Neg NEGATIVE Urine Cannabinoids Screen Pos NEGATIVE Test 06/19/24 15:12 06/19/24 15:08 Range/Units Blood Gas Specimen Type Arterial Blood Gas Sample Site Right brachial Blood Gas Patient Temperature 37.0 Arterial Blood Date Drawn [id number] Arterial Blood pH 7.454 H 7.350-7.450 Arterial Blood Partial Pressure CO2 24.4 L 35.0-48.0 mmHg Arterial Blood Partial Pressure O2 65.5 L 83.0-108.0 mmHg Arterial Blood HCO3 16.7 L 21.0-28.0 mmol/L Arterial Blood Oxygen Saturation 94.0 94.0-98.0 % Arterial Blood Base Excess -4.6 L -2.0-3.0 mmol/L Arterial Blood Oxyhemoglobin 92.2 L 94.0-98.0 % Arterial Blood Carboxyhemoglobin 1.4 0.5-1.5 % Arterial Blood Methemoglobin 0.5 0.0-1.5 % Mitesh Test N/a Blood Gas Total Hemoglobin 18.40 *H 13.5-17.5 g/dL Blood Gas Modality Room air FiO2 % 21.0 Blood Gas Critical Value Read Back Yes Blood Gas Notified Whom Dr. bonilla Blood Gas Notified Time [id number] Blood Gas Notified By B-Type Natriuretic Peptide 2669.91 0-100 pg/mL Plasma/Serum Blood Alcohol 7.3 <10 mg/dL Microbiology Date/Time Source Procedure Growth Status 06/19/24 15:08 Blood Blood Culture - Preliminary NO GROWTH AFTER 48 HOURS OF INCUBATION. Resulted Assessment Acute on chronic HErEF --> NYHA class 3 --> BNP: 2669 --> Chest x-ray: Moderate cardiomegaly with pulmonary vascular congestion and small right-sided pleural effusion --> Echo: Ejection fraction of 25%. There is a globular echodense structure seen in the left ventricular apical area measuring 2.3 x 1.5 cm, likely representing left ventricular mural thrombus. --> Initiate GDMT ( Coreg, spironolactone, entresto; Hold Jardiance until UTI resolves) -->Increase diuresis ( Furosemide 40mg bid) Left ventricular mural thrombus --> Start therapeutic anticoagulation, per pharmacy --> For discharge, patient need to been on warfarin and follow up at the Coumadin clinic OR NOAC depending of patient's condition after discharge Acute hypoxic respiratory failure -->ABG:pH: 7.45, PO2: 62, PCO2: 24.4 --> RR: 26-->52-->23-->19 --> On 3L of oxygen, SpO2 94 Polysubstance abuse ---> UDS positive for opiates and cannabinoids --> No opiates given before the UDS was done Cardiomyopathy -->noted on Chest x-ray Acute metabolic encephalopathy --> Rule out acute CVA --> management per primary team History of CVA --> CT head: Hypodense changes in the superior right frontal lobe with loss of valle-white matter differentiation suggestive of an age-indeterminate infarct. There is no acute intracranial hemorrhage. --> lives at a [facility] Sepsis secondary to acute urinary tract infection --> Blood cultures urine cultures --> Continue antibiotics per primary team Acute urinary tract infection --> Rocephin Thank you for allowing us to participate in the care of this patient. Please call if you have any questions or concerns. Plan discussed with: Other (bedside nurse) Visit Coding Cardiology RES Date of Service: Jun 21, 2024 Billing Provider: PAMELA PAUL MD Cardiology Common Codes: [id number] INP/OBS CARE (High) Cardiology Consultation Codes: [id number] CONSULT <45MIN ADRIANA HARRY RESIDENT Jun 21, 2024 17:43
[2024-06-21] MEDS: FUROSEMIDE 20 MG/2 ML VIAL IV SCH (18:35)
[2024-06-21] MEDS: SACUBITRIL-VALSARTAN 24mg/26mg TAB PO SCH (21:46)
[2024-06-21] MEDS: ENOXAPARIN SOD 100 MG/1 ML SYRINGE SC SCH (21:48)
[2024-06-22] VITALS (9 sets, daily range): BP systolic 78–133; BP diastolic 41–74; PULSE 60–74; RESP 16–18; TEMP 97.6–98.1; O2SAT 94–97
[2024-06-22 06:35] LABS: Basophils # (auto) 0.1 10 ^3/uL (0-0.2); Eosinophils # (auto) 0.1 10 ^3/uL (0-0.8); Lymphocytes # (auto) 0.7 10 ^3/uL (0.4-5.4); Nucleated Red Blood Cells % 0.2 %
[2024-06-22 06:37] LABS: Basophils % (auto) 0.8 % (0.0-2.0); Eosinophils % (auto) 0.7 % (0.0-7.0); Hemoglobin 18.5 g/dL (13.5-17.5); Mean Corpuscular Hemoglobin 30.6 pg (28.0-32.0); Mean Corpuscular Volume 92.7 fL (80.0-100.0); Monocytes # (auto) 1.2 10 ^3/uL (0-1.3); Monocytes % (auto) 9.9 % (0.0-12.0); Neutrophils # (auto) 9.6 10 ^3/uL (1.6-8.6); Neutrophils % (auto) 82.6 % (37.0-80.0); Platelet Count (auto) 208 10^3/uL (140-450); Red Blood Cells 6.04 10^6/uL (4.5-5.90); Red Cell Distribution Width 19.6 % (11.8-14.3); White Blood Cell 11.7 10^3/uL (4.4-10.8)
--- NOTE | 2024-06-22 11:23 | DVHPN2 ---
Reviewed: Care Plan, H&P, Labs, Medications, Previous Orders, Radiology Changes from previous H/P or p: No Changes Objective Vitals Vital Signs Date Time Temp Pulse Resp B/P (MAP) Pulse Ox O2 Delivery O2 Flow Rate FiO2 06/22/24 10:12 64 133/74 06/22/24 08:37 97.9 18 95 97.9 06/21/24 20:00 Nasal Cannula* 3 32 Intake/Output Intake and Output 06/22/24 07:00 Intake Total 650 ml Output Total 3625 ml Balance -2975 ml Intake Oral 600 ml IV Total 50 ml Output Urine Total 3625 ml Medications Current Medications Medications Dose Ordered Sig/Rose Marie Route Start Time Stop Time Status Last Admin Dose Admin Ondansetron HCl 4 mg Q4HP PRN IV 06/19/24 19:15 Acetaminophen 650 mg Q6HP PRN PO 06/19/24 19:15 Nitroglycerin 0.4 mg Q5MINP PRN SL 06/19/24 19:15 Morphine Sulfate 2 mg Q30M PRN IV 06/19/24 19:15 Carvedilol 6.25 mg Q12HR PO 06/20/24 10:00 06/22/24 10:12 6.25 MG Losartan Potassium 25 mg DAILY PO 06/20/24 10:00 06/22/24 10:11 25 MG Spironolactone 25 mg DAILY PO 06/20/24 10:00 06/22/24 10:11 25 MG Ceftriaxone Sodium 50 ml @ 100 mls/hr DAILY@09 IV 06/21/24 09:00 06/22/24 08:48 100 MLS/HR Lorazepam 0.5 mg Q12HP PRN PO 06/20/24 21:00 06/20/24 21:09 0.5 MG Sacubitril/ Valsartan 1 tab BID PO 06/21/24 22:00 06/22/24 10:12 1 TAB Furosemide 40 mg BIDD IV 06/21/24 18:00 06/22/24 05:34 40 MG Enoxaparin Sodium 100 mg Q12HR SC 06/21/24 22:00 06/22/24 10:12 100 MG Laboratory Results Laboratory Tests 06/20/24 07:15 06/22/24 06:00 Urinalysis Test 06/19/24 17:02 Urine Color Yellow (Yellow) Urine Clarity Clear (Clear) Urine pH 6.5 (5.0-9.0) Urine Specific [place] 1.018 (1.001-1.035) Urine Protein 1+ (Negative) H Urine Ketones Negative (Negative) Urine Blood Negative /uL (Negative) Urine Nitrite Negative (Negative) Urine Bilirubin Negative (Negative) Urine Urobilinogen 4 mg/dL (Negative) H Urine Leukocyte Esterase Negative /uL (Negative) Urine RBC 1 /hpf (0 - 3) Urine WBC 5 /hpf (0 - 3) Urine Squamous Epithelial Cells None seen /hpf (<5) Urine Bacteria None seen /hpf (None Seen) Urine Hyaline Casts Few /lpf (0 - 2) Urine Mucus Few (None Seen) Urine Glucose Normal mg/dL (Normal) Microbiology Microbiology Date/Time Source Procedure Growth Status 06/19/24 15:08 Blood Blood Culture - Preliminary NO GROWTH AFTER 48 HOURS OF INCUBATION. 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 Alvarez appreciated Echo 25 % ejection fraction Polysubstance abuse Cardiomyopathy Left ventricular mural thrombus therapeutic Lovenox, to go home on Coumadin or Eliquis at the time of discharge Time spent 45 minutes Patient is full code Patient came from board and care Patient is hospice revoked Plan discussed with: Patient My Orders Orders - NIEVES CHÁVEZ MD Procedure Category Date Status Time Communication Order ORDERS 06/22/24 Verified 11:18 Date of Service: Jun 22, 2024 Billing Provider: NIEVES CHÁVEZ MD Common Visit Codes: [id number] INP/OBS CARE(HIGH) NIEVES CHÁVEZ MD Jun 22, 2024 11:23
--- NOTE | 2024-06-22 16:22 | DVHPN2 ---
Consult Progress Note Date Seen: Jun 22, 2024 Subjective Patient reports: No new complaints Other Systems: Patient seen and examine. Lying in bed. No communication today. A0X1. I spoke with the primary team about the patient's living situation for discharge on warfarin. As the the patient will need to follow up at the coumadin clinic. Objective vital signs Vital Sign Date Time Temp Pulse Resp B/P (MAP) Pulse Ox O2 Delivery O2 Flow Rate FiO2 06/22/24 13:00 98.1 71 18 105/55 (72) 94 98.1 06/22/24 08:00 Nasal Cannula* 3 32 Total Intake and Output 06/21/24 06/21/24 06/22/24 15:00 23:00 07:00 Intake Total 50 ml 200 ml 400 ml Output Total 2275 ml 1350 ml Balance 50 ml -2075 ml -950 ml medications Current Medications Medications Dose Ordered Sig/Rose Marie Route Start Time Stop Time Status Last Admin Dose Admin Ondansetron HCl 4 mg Q4HP PRN IV 06/19/24 19:15 Acetaminophen 650 mg Q6HP PRN PO 06/19/24 19:15 Nitroglycerin 0.4 mg Q5MINP PRN SL 06/19/24 19:15 Morphine Sulfate 2 mg Q30M PRN IV 06/19/24 19:15 Carvedilol 6.25 mg Q12HR PO 06/20/24 10:00 06/22/24 10:12 6.25 MG Losartan Potassium 25 mg DAILY PO 06/20/24 10:00 06/22/24 10:11 25 MG Spironolactone 25 mg DAILY PO 06/20/24 10:00 06/22/24 10:11 25 MG Ceftriaxone Sodium 50 ml @ 100 mls/hr DAILY@09 IV 06/21/24 09:00 06/22/24 08:48 100 MLS/HR Lorazepam 0.5 mg Q12HP PRN PO 06/20/24 21:00 06/20/24 21:09 0.5 MG Sacubitril/ Valsartan 1 tab BID PO 06/21/24 22:00 06/22/24 10:12 1 TAB Furosemide 40 mg BIDD IV 06/21/24 18:00 06/22/24 05:34 40 MG Enoxaparin Sodium 100 mg Q12HR SC 06/21/24 22:00 06/22/24 10:12 100 MG laboratory and microbiology Laboratory Tests 06/22/24 06:00 06/20/24 07:15 Test 06/20/24 07:15 Range/Units Serum Glucose 90 74-106 mg/dL Problem List/Assessment/Plan Problem List/Assessment/Plan Acute on chronic HErEF --> NYHA class 3 --> BNP: 2669 --> Chest x-ray: Moderate cardiomegaly with pulmonary vascular congestion and small right-sided pleural effusion --> Echo: Ejection fraction of 25%. There is a globular echodense structure seen in the left ventricular apical area measuring 2.3 x 1.5 cm, likely representing left ventricular mural thrombus. --> Continue GDMT (Coreg, spironolactone, entresto; Hold Jardiance until UTI resolves) -->Increase diuresis (Furosemide 40mg bid) Left ventricular mural thrombus --> Continue therapeutic levonox, per pharmacy --> For discharge, guideline treatment: Coumadin Given patient's currently state, unlikely he would be able to attend Coumadin clinic Consider eliquis as another option Polysubstance abuse ---> UDS positive for opiates and cannabinoids --> No opiates given before the UDS was done Cardiomegaly -->noted on Chest x-ray Acute hypoxic respiratory failure -->ABG:pH: 7.45, PO2: 62, PCO2: 24.4 --> RR: 26-->52-->23-->19 --> On 3L of oxygen, SpO2 94 Acute metabolic encephalopathy --> Rule out acute CVA --> management per primary team History of CVA --> CT head: Hypodense changes in the superior right frontal lobe with loss of valle-white matter differentiation suggestive of an age-indeterminate infarct. There is no acute intracranial hemorrhage. --> lives at a SNF Sepsis secondary to acute urinary tract infection --> Blood cultures urine cultures --> Continue antibiotics per primary team Acute urinary tract infection --> Mikeepalvaro Thank you for allowing us to participate in the care of this patient. We will sign off now. Please call if you have any questions or concerns. Plan discussed with: Other (Nurse) Date of Service: Jun 22, 2024 Billing Provider: ADRIANA HARRY RESIDENT Cardiology Common Codes: [id number] CARE-EACH +30MIN ADRIANA HARRY Jun 22, 2024 16:22
[2024-06-22] MEDS: ALBUMIN 5% 250 ML IV ONE (22:31)
[2024-06-23] VITALS (8 sets, daily range): BP systolic 95–125; BP diastolic 49–69; PULSE 61–74; RESP 17–20; TEMP 98.1–98.8; O2SAT 95–99
--- NOTE | 2024-06-23 01:17 | DVH ---
CHEST RADIOGRAPH Indication: lathargic, decreased blood pressure, on supplemental oxygen Technique: Single frontal view of the chest was obtained COMPARISON: XY CHEST PORTABLE on DOS: 06/19/24 FINDINGS: Lines and Tubes: None Lungs: Moderate interstitial pulmonary edema. Pleura: Probable small right effusion No pneumothorax. Cardiomediastinal contours: Cardiothymic Bones: Unremarkable IMPRESSION: 1. Moderate interstitial pulmonary edema in the setting of cardiomegaly 2. Probable small right effusion
--- NOTE | 2024-06-23 09:57 | DVHPN2 ---
Reviewed: Care Plan, H&P, Labs, Medications, Previous Orders, Radiology Changes from previous H/P or p: No Changes Objective Vitals Vital Signs Date Time Temp Pulse Resp B/P (MAP) Pulse Ox O2 Delivery O2 Flow Rate FiO2 06/23/24 05:14 108/54 06/23/24 05:02 98.2 63 20 99 98.2 06/22/24 20:00 Nasal Cannula* 3 32 Intake/Output Intake and Output 06/23/24 07:00 Intake Total 1680 ml Output Total 895 ml Balance 785 ml Intake Oral 1380 ml IV Total 300 ml Output Urine Total 895 ml Medications Current Medications Medications Dose Ordered Sig/Rose Marie Route Start Time Stop Time Status Last Admin Dose Admin Ondansetron HCl 4 mg Q4HP PRN IV 06/19/24 19:15 Acetaminophen 650 mg Q6HP PRN PO 06/19/24 19:15 Nitroglycerin 0.4 mg Q5MINP PRN SL 06/19/24 19:15 Morphine Sulfate 2 mg Q30M PRN IV 06/19/24 19:15 Carvedilol 6.25 mg Q12HR PO 06/20/24 10:00 06/22/24 10:12 6.25 MG Losartan Potassium 25 mg DAILY PO 06/20/24 10:00 06/22/24 10:11 25 MG Spironolactone 25 mg DAILY PO 06/20/24 10:00 06/23/24 09:19 25 MG Ceftriaxone Sodium 50 ml @ 100 mls/hr DAILY@09 IV 06/21/24 09:00 06/23/24 09:19 100 MLS/HR Lorazepam 0.5 mg Q12HP PRN PO 06/20/24 21:00 06/20/24 21:09 0.5 MG Sacubitril/ Valsartan 1 tab BID PO 06/21/24 22:00 06/22/24 10:12 1 TAB Furosemide 40 mg BIDD IV 06/21/24 18:00 06/22/24 18:00 40 MG Enoxaparin Sodium 100 mg Q12HR SC 06/21/24 22:00 06/23/24 09:20 100 MG Laboratory Results Laboratory Tests 06/20/24 07:15 06/22/24 06:00 Urinalysis Test 06/19/24 17:02 Urine Color Yellow (Yellow) Urine Clarity Clear (Clear) Urine pH 6.5 (5.0-9.0) Urine Specific [place] 1.018 (1.001-1.035) Urine Protein 1+ (Negative) H Urine Ketones Negative (Negative) Urine Blood Negative /uL (Negative) Urine Nitrite Negative (Negative) Urine Bilirubin Negative (Negative) Urine Urobilinogen 4 mg/dL (Negative) H Urine Leukocyte Esterase Negative /uL (Negative) Urine RBC 1 /hpf (0 - 3) Urine WBC 5 /hpf (0 - 3) Urine Squamous Epithelial Cells None seen /hpf (<5) Urine Bacteria None seen /hpf (None Seen) Urine Hyaline Casts Few /lpf (0 - 2) Urine Mucus Few (None Seen) Urine Glucose Normal mg/dL (Normal) Microbiology Microbiology Date/Time Source Procedure Growth Status 06/19/24 15:08 Blood Blood Culture - Preliminary NO GROWTH AFTER 72 HOURS OF INCUBATION. 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 Alvarez appreciated Echo 25 % ejection fraction Acute hypotension secondary to sepsis: NS 100 mL/hour History of Polysubstance abuse Cardiomyopathy Left ventricular mural thrombus therapeutic Lovenox, to go home on Coumadin or Eliquis at the time of discharge Time spent 65 minutes Patient is full code Patient came from board and care Patient is hospice revoked Patient's mental status has slightly improved Plan discussed with: Patient My Orders Orders - NIEVES CHÁVEZ MD Procedure Category Date Status Time Communication Order ORDERS 06/22/24 Transmitted 11:18 Urine Bacterial LIZA 06/23/24 In Process Culture 01:20 Date of Service: Jun 23, 2024 Billing Provider: NIEVES CHÁVEZ MD Common Visit Codes: [id number] CARE 30-74 MIN NIEVES CHÁVEZ MD Jun 23, 2024 09:57
[2024-06-23] MEDS: SODIUM CHLORIDE 0.9% 1,000 ML IV SCH (11:43)
[2024-06-24] VITALS (7 sets, daily range): BP systolic 101–140; BP diastolic 54–80; PULSE 69–79; RESP 17–18; TEMP 96.1–97.6; O2SAT 92–95
--- NOTE | 2024-06-24 11:23 | DVHPN2 ---
Reviewed: Care Plan, H&P, Labs, Medications, Previous Orders, Radiology Changes from previous H/P or p: No Changes Objective Vitals Vital Signs Date Time Temp Pulse Resp B/P (MAP) Pulse Ox O2 Delivery O2 Flow Rate FiO2 06/24/24 10:19 73 123/68 06/24/24 09:30 96.1 17 95 96.1 06/23/24 20:00 Nasal Cannula* 2 28 Intake/Output Intake and Output 06/24/24 07:00 Intake Total 2920 ml Output Total 1125 ml Balance 1795 ml Intake Oral 2220 ml IV Total 700 ml Output Urine Total 1125 ml Medications Current Medications Medications Dose Ordered Sig/Rose Marie Route Start Time Stop Time Status Last Admin Dose Admin Ondansetron HCl 4 mg Q4HP PRN IV 06/19/24 19:15 Acetaminophen 650 mg Q6HP PRN PO 06/19/24 19:15 Nitroglycerin 0.4 mg Q5MINP PRN SL 06/19/24 19:15 Morphine Sulfate 2 mg Q30M PRN IV 06/19/24 19:15 Carvedilol 6.25 mg Q12HR PO 06/20/24 10:00 06/24/24 10:19 6.25 MG Losartan Potassium 25 mg DAILY PO 06/20/24 10:00 Hold 06/22/24 10:11 25 MG Spironolactone 25 mg DAILY PO 06/20/24 10:00 06/24/24 10:17 25 MG Ceftriaxone Sodium 50 ml @ 100 mls/hr DAILY@09 IV 06/21/24 09:00 06/24/24 10:08 100 MLS/HR Lorazepam 0.5 mg Q12HP PRN PO 06/20/24 21:00 06/20/24 21:09 0.5 MG Sacubitril/ Valsartan 1 tab BID PO 06/21/24 22:00 06/24/24 10:09 1 TAB Furosemide 40 mg BIDD IV 06/21/24 18:00 06/22/24 18:00 40 MG Enoxaparin Sodium 100 mg Q12HR SC 06/21/24 22:00 06/24/24 10:10 100 MG Sodium Chloride 1,000 ml @ 100 mls/hr Q10H IV 06/23/24 11:00 06/23/24 22:16 100 MLS/HR Laboratory Results Laboratory Tests 06/20/24 07:15 06/22/24 06:00 Urinalysis Test 06/19/24 17:02 Urine Color Yellow (Yellow) Urine Clarity Clear (Clear) Urine pH 6.5 (5.0-9.0) Urine Specific [place] 1.018 (1.001-1.035) Urine Protein 1+ (Negative) H Urine Ketones Negative (Negative) Urine Blood Negative /uL (Negative) Urine Nitrite Negative (Negative) Urine Bilirubin Negative (Negative) Urine Urobilinogen 4 mg/dL (Negative) H Urine Leukocyte Esterase Negative /uL (Negative) Urine RBC 1 /hpf (0 - 3) Urine WBC 5 /hpf (0 - 3) Urine Squamous Epithelial Cells None seen /hpf (<5) Urine Bacteria None seen /hpf (None Seen) Urine Hyaline Casts Few /lpf (0 - 2) Urine Mucus Few (None Seen) Urine Glucose Normal mg/dL (Normal) Microbiology Microbiology Date/Time Source Procedure Growth Status 06/23/24 01:15 Urine - [place] Urine Culture - Preliminary Resulted 06/19/24 15:08 Blood Blood Culture - Preliminary NO GROWTH AFTER 72 HOURS OF INCUBATION. 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 Alvarez appreciated Echo 25 % ejection fraction Acute hypotension secondary to sepsis: NS 100 mL/hour History of Polysubstance abuse Cardiomyopathy Left ventricular mural thrombus therapeutic Lovenox, to go home on Coumadin or Eliquis at the time of discharge Time spent 65 minutes Patient is full code Patient came from board and care Patient is hospice revoked Patient's mental status has slightly improved Per pt, family members in car accident, no personal insurance advisor. Physical therapy ordered. Plan discussed with: Patient My Orders Orders - NIEVES CHÁVEZ MD Procedure Category Date Status Time Pt Request For Service PT 06/23/24 Logged 16:47 Date of Service: Jun 24, 2024 Billing Provider: NIEVES CHÁVEZ MD Common Visit Codes: [id number] CARE 30-74 MIN NIEVES CHÁVEZ MD Jun 24, 2024 11:23
[2024-06-24 21:27] LABS: COVID19 ANTIGEN SOFIA FIA NEGATIVE (NEGATIVE)
[2024-06-24 21:28] LABS: Rapid Influenza A Negative (Negative); Rapid Influenza B Negative (Negative)
[2024-06-25] VITALS (10 sets, daily range): BP systolic 104–140; BP diastolic 51–89; PULSE 64–117; RESP 16–20; TEMP 97.1–98.2; O2SAT 94–97
[2024-06-25] MEDS: ACETAMINOPHEN 325 MG TAB PO PRN (11:25)
[2024-06-25 12:10] LABS: Alanine Aminotransferase 22 U/L (7-40); Alkaline Phosphatase 102 U/L (46-116); Anion Gap 7 (5-15); Aspartate Aminotransferase 37 U/L (13-40); BUN/Creatinine Ratio 15.7 (10.0-20.0); Blood Urea Nitrogen 11 mg/dL (9-23); Calcium 8.5 mg/dL (8.7-10.4); Carbon Dioxide 22 mmol/L (20-31); Chloride 112 mmol/L (98-107); Glucose 92 mg/dL (74-106); Potassium 3.9 mmol/L (3.5-5.1); Sodium 141 mmol/L (136-145); Total Protein 6.4 g/dL (5.7-8.2)
[2024-06-25 12:11] LABS: Bilirubin, Total 1.5 mg/dL (0.2-1.0)
[2024-06-26] VITALS (8 sets, daily range): BP systolic 111–131; BP diastolic 58–77; PULSE 68–75; RESP 16–19; TEMP 97.4–97.9; O2SAT 95–100
--- NOTE | 2024-06-26 10:37 | DVHPN2 ---
Reviewed: Care Plan, H&P, Labs, Medications, Previous Orders, Radiology Changes from previous H/P or p: No Changes Objective Vitals Vital Signs Date Time Temp Pulse Resp B/P (MAP) Pulse Ox O2 Delivery O2 Flow Rate FiO2 06/26/24 09:56 68 113/70 06/26/24 05:00 97.9 18 95 97.9 06/25/24 19:40 Nasal Cannula* 2 28 Intake/Output Intake and Output 06/26/24 07:00 Intake Total 3400 ml Output Total 800 ml Balance 2600 ml Intake Oral 2650 ml IV Total 750 ml Output Urine Total 800 ml # Bowel Movements 4 Medications Current Medications Medications Dose Ordered Sig/Rose Marie Route Start Time Stop Time Status Last Admin Dose Admin Ondansetron HCl 4 mg Q4HP PRN IV 06/19/24 19:15 Acetaminophen 650 mg Q6HP PRN PO 06/19/24 19:15 06/26/24 01:50 650 MG Nitroglycerin 0.4 mg Q5MINP PRN SL 06/19/24 19:15 Morphine Sulfate 2 mg Q30M PRN IV 06/19/24 19:15 Carvedilol 6.25 mg Q12HR PO 06/20/24 10:00 06/26/24 09:56 6.25 MG Losartan Potassium 25 mg DAILY PO 06/20/24 10:00 Hold 06/22/24 10:11 25 MG Spironolactone 25 mg DAILY PO 06/20/24 10:00 06/26/24 09:56 25 MG Ceftriaxone Sodium 50 ml @ 100 mls/hr DAILY@09 IV 06/21/24 09:00 06/26/24 09:56 100 MLS/HR Lorazepam 0.5 mg Q12HP PRN PO 06/20/24 21:00 06/26/24 01:50 0.5 MG Sacubitril/ Valsartan 1 tab BID PO 06/21/24 22:00 06/26/24 09:56 1 TAB Furosemide 40 mg BIDD IV 06/21/24 18:00 06/26/24 05:49 40 MG Enoxaparin Sodium 100 mg Q12HR SC 06/21/24 22:00 06/26/24 09:57 100 MG Sodium Chloride 1,000 ml @ 100 mls/hr Q10H IV 06/23/24 11:00 06/26/24 09:57 100 MLS/HR Laboratory Results Laboratory Tests 06/22/24 06:00 06/25/24 11:30 Chemistry Test 06/25/24 11:30 Albumin 3.0 g/dL (3.2-4.8) L Calcium Level 8.5 mg/dL (8.7-10.4) L Total Protein 6.4 g/dL (5.7-8.2) LFT Test 06/25/24 11:30 Alanine Aminotransferase (ALT) 22 U/L (7-40) Alkaline Phosphatase 102 U/L (46-116) Aspartate Amino Transferase (AST) 37 U/L (13-40) Total Bilirubin 1.5 mg/dL (0.2-1.0) H Urinalysis Test 06/19/24 17:02 Urine Color Yellow (Yellow) Urine Clarity Clear (Clear) Urine pH 6.5 (5.0-9.0) Urine Specific [place] 1.018 (1.001-1.035) Urine Protein 1+ (Negative) H Urine Ketones Negative (Negative) Urine Blood Negative /uL (Negative) Urine Nitrite Negative (Negative) Urine Bilirubin Negative (Negative) Urine Urobilinogen 4 mg/dL (Negative) H Urine Leukocyte Esterase Negative /uL (Negative) Urine RBC 1 /hpf (0 - 3) Urine WBC 5 /hpf (0 - 3) Urine Squamous Epithelial Cells None seen /hpf (<5) Urine Bacteria None seen /hpf (None Seen) Urine Hyaline Casts Few /lpf (0 - 2) Urine Mucus Few (None Seen) Urine Glucose Normal mg/dL (Normal) Microbiology Microbiology Date/Time Source Procedure Growth Status 06/23/24 01:15 Urine - [place] Urine Culture - Final Complete 06/19/24 15:08 Blood Blood Culture - Final NO GROWTH AFTER 5 DAYS OF INCUBATION. 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 Alvarez appreciated Echo 25 % ejection fraction Acute hypotension secondary to sepsis: NS 100 mL/hour History of Polysubstance abuse Cardiomyopathy Left ventricular mural thrombus therapeutic Lovenox, to go home on Coumadin or Eliquis at the time of discharge Time spent 65 minutes Patient is full code Patient came from board and care Patient is hospice revoked Patient's mental status improving slowly Per pt, family members in car accident, no overnight houseperson. Physical therapy ordered. Plan discussed with: Patient My Orders Orders - NIEVES CHÁVEZ MD Procedure Category Date Status Time D/C Sitter ORDERS 06/25/24 Transmitted 10:40 * Wound Consult CONS 06/25/24 Transmitted Date of Service: Jun 26, 2024 Billing Provider: NIEVES CHÁVEZ MD Common Visit Codes: [id number] INP/OBS CARE(HIGH) NIEVES CHÁVEZ MD Jun 26, 2024 10:37
[2024-06-27] VITALS (8 sets, daily range): BP systolic 100–123; BP diastolic 50–81; PULSE 64–83; RESP 16–18; TEMP 97.5–98; O2SAT 94–98
--- NOTE | 2024-06-27 09:31 | DVHPN2 ---
Reviewed: Care Plan, H&P, Labs, Medications, Previous Orders, Radiology Changes from previous H/P or p: No Changes Objective Vitals Vital Signs Date Time Temp Pulse Resp B/P (MAP) Pulse Ox O2 Delivery O2 Flow Rate FiO2 06/27/24 05:00 76 16 111/70 (84) 98 06/27/24 01:00 97.5 97.5 06/26/24 20:00 Nasal Cannula* 2 28 Intake/Output Intake and Output 06/27/24 07:00 Intake Total 1470 ml Output Total 4350 ml Balance -2880 ml Intake Oral 520 ml IV Total 950 ml Output Urine Total 4350 ml # Bowel Movements 3 Medications Current Medications Medications Dose Ordered Sig/Rose Marie Route Start Time Stop Time Status Last Admin Dose Admin Ondansetron HCl 4 mg Q4HP PRN IV 06/19/24 19:15 Acetaminophen 650 mg Q6HP PRN PO 06/19/24 19:15 06/26/24 01:50 650 MG Nitroglycerin 0.4 mg Q5MINP PRN SL 06/19/24 19:15 Morphine Sulfate 2 mg Q30M PRN IV 06/19/24 19:15 Carvedilol 6.25 mg Q12HR PO 06/20/24 10:00 06/26/24 21:33 6.25 MG Losartan Potassium 25 mg DAILY PO 06/20/24 10:00 Hold 06/22/24 10:11 25 MG Spironolactone 25 mg DAILY PO 06/20/24 10:00 06/26/24 09:56 25 MG Ceftriaxone Sodium 50 ml @ 100 mls/hr DAILY@09 IV 06/21/24 09:00 06/27/24 09:10 100 MLS/HR Lorazepam 0.5 mg Q12HP PRN PO 06/20/24 21:00 06/26/24 01:50 0.5 MG Sacubitril/ Valsartan 1 tab BID PO 06/21/24 22:00 06/26/24 21:33 1 TAB Furosemide 40 mg BIDD IV 06/21/24 18:00 06/26/24 17:33 40 MG Enoxaparin Sodium 100 mg Q12HR SC 06/21/24 22:00 06/26/24 21:33 100 MG Sodium Chloride 1,000 ml @ 100 mls/hr Q10H IV 06/23/24 11:00 06/26/24 09:57 100 MLS/HR Laboratory Results Laboratory Tests 06/22/24 06:00 06/25/24 11:30 Urinalysis Test 06/19/24 17:02 Urine Color Yellow (Yellow) Urine Clarity Clear (Clear) Urine pH 6.5 (5.0-9.0) Urine Specific [place] 1.018 (1.001-1.035) Urine Protein 1+ (Negative) H Urine Ketones Negative (Negative) Urine Blood Negative /uL (Negative) Urine Nitrite Negative (Negative) Urine Bilirubin Negative (Negative) Urine Urobilinogen 4 mg/dL (Negative) H Urine Leukocyte Esterase Negative /uL (Negative) Urine RBC 1 /hpf (0 - 3) Urine WBC 5 /hpf (0 - 3) Urine Squamous Epithelial Cells None seen /hpf (<5) Urine Bacteria None seen /hpf (None Seen) Urine Hyaline Casts Few /lpf (0 - 2) Urine Mucus Few (None Seen) Urine Glucose Normal mg/dL (Normal) Microbiology Microbiology Date/Time Source Procedure Growth Status 06/23/24 01:15 Urine - [place] Urine Culture - Final Complete 06/19/24 15:08 Blood Blood Culture - Final NO GROWTH AFTER 5 DAYS OF INCUBATION. 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 Alvarez appreciated Echo 25 % ejection fraction Acute hypotension secondary to sepsis: Resolved History of Polysubstance abuse Cardiomyopathy Left ventricular mural thrombus therapeutic Lovenox, to go home on Coumadin or Eliquis at the time of discharge Time spent 55 minutes Patient is full code Patient came from board and care Patient is hospice revoked Patient's mental status improving slowly Per pt, family members in car accident, no hotel yardperson. Physical therapy ordered. Plan discussed with: Patient My Orders Orders - NIEVES CHÁVEZ MD Procedure Category Date Status Time * Dietary Consult CONS 06/26/24 Transmitted 13:07 Cleanse Wound With TOÑO 06/26/24 In Process Mild Soap A 10:10 Date of Service: Jun 27, 2024 Billing Provider: NIEVES CHÁVEZ MD Common Visit Codes: [id number] INP/OBS CARE(HIGH) NIEVES CHÁVEZ MD Jun 27, 2024 09:31
[2024-06-28 01:00] VITALS: BP 99/61; PULSE 68; RESP 18; O2SAT 95
[2024-06-28 05:00] VITALS: BP 110/57; PULSE 65; RESP 18; O2SAT 95
[2024-06-28 06:09] LABS: Basophils # (auto) 0.1 10 ^3/uL (0-0.2); Basophils % (auto) 0.6 % (0.0-2.0); Eosinophils # (auto) 0.1 10 ^3/uL (0-0.8); Eosinophils % (auto) 1.6 % (0.0-7.0); Hematocrit 46.4 % (41.0-53.0); Hemoglobin 15.3 g/dL (13.5-17.5); Lymphocytes % (auto) 10.8 % (10.0-50.0); Mean Corpuscular Hgb Conc. 32.9 g/dL (32.0-36.0); Mean Corpuscular Volume 91.1 fL (80.0-100.0); Monocytes # (auto) 0.9 10 ^3/uL (0-1.3); Monocytes % (auto) 9.8 % (0.0-12.0); Neutrophils # (auto) 6.9 10 ^3/uL (1.6-8.6); Neutrophils % (auto) 77.2 % (37.0-80.0); Nucleated Red Blood Cells % 0.1 %; Platelet Count (auto) 265 10^3/uL (140-450); Red Blood Cells 5.09 10^6/uL (4.5-5.90); Red Cell Distribution Width 18.8 % (11.8-14.3); White Blood Cell 8.9 10^3/uL (4.4-10.8)
[2024-06-28 06:36] LABS: Alanine Aminotransferase 17 U/L (7-40); Alkaline Phosphatase 108 U/L (46-116); Anion Gap 10 (5-15); Aspartate Aminotransferase 34 U/L (13-40); Carbon Dioxide 23 mmol/L (20-31); Sodium 140 mmol/L (136-145)
[2024-06-28 06:37] LABS: Total Protein 6.8 g/dL (5.7-8.2)
[2024-06-28 06:45] LABS: Albumin 3.2 g/dL (3.2-4.8); Blood Urea Nitrogen 8 mg/dL (9-23); Chloride 107 mmol/L (98-107); Glucose 109 mg/dL (74-106); Potassium 3.4 mmol/L (3.5-5.1)
[2024-06-28 08:00] VITALS: PULSE 69
[2024-06-28 09:00] VITALS: BP 108/54; PULSE 68; RESP 16; TEMP 97.8; O2SAT 97
--- NOTE | 2024-06-28 10:45 | DVHPN2 ---
Reviewed: Care Plan, H&P, Labs, Medications, Previous Orders, Radiology Changes from previous H/P or p: No Changes Objective Vitals Vital Signs Date Time Temp Pulse Resp B/P (MAP) Pulse Ox O2 Delivery O2 Flow Rate FiO2 06/28/24 09:43 68 108/54 06/28/24 05:00 18 95 06/27/24 21:00 98.0 98.0 06/27/24 20:00 Nasal Cannula* 2 28 Intake/Output Intake and Output 06/28/24 07:00 Intake Total 2570 ml Output Total 1800 ml Balance 770 ml Intake Oral 2520 ml IV Total 50 ml Output Urine Total 1800 ml # Bowel Movements 3 Medications Current Medications Medications Dose Ordered Sig/Rose [place] Route Start Time Stop Time Status Last Admin Dose Admin Ondansetron HCl 4 mg Q4HP PRN IV 06/19/24 19:15 Acetaminophen 650 mg Q6HP PRN PO 06/19/24 19:15 06/28/24 09:42 650 MG Nitroglycerin 0.4 mg Q5MINP PRN SL 06/19/24 19:15 Morphine Sulfate 2 mg Q30M PRN IV 06/19/24 19:15 Carvedilol 6.25 mg Q12HR PO 06/20/24 10:00 06/28/24 09:43 6.25 MG Losartan Potassium 25 mg DAILY PO 06/20/24 10:00 Hold 06/22/24 10:11 25 MG Spironolactone 25 mg DAILY PO 06/20/24 10:00 06/28/24 09:42 25 MG Ceftriaxone Sodium 50 ml @ 100 mls/hr DAILY@09 IV 06/21/24 09:00 06/28/24 09:42 100 MLS/HR Lorazepam 0.5 mg Q12HP PRN PO 06/20/24 21:00 06/26/24 01:50 0.5 MG Sacubitril/ Valsartan 1 tab BID PO 06/21/24 22:00 06/28/24 09:42 1 TAB Furosemide 40 mg BIDD IV 06/21/24 18:00 06/27/24 18:02 40 MG Enoxaparin Sodium 100 mg Q12HR SC 06/21/24 22:00 06/28/24 09:43 100 MG Sodium Chloride 1,000 ml @ 100 mls/hr Q10H IV 06/23/24 11:00 06/28/24 09:43 100 MLS/HR Laboratory Results Laboratory Tests 06/28/24 05:06 Chemistry Test 06/28/24 05:06 Albumin 3.2 g/dL (3.2-4.8) Calcium Level 9.0 mg/dL (8.7-10.4) Total Protein 6.8 g/dL (5.7-8.2) LFT Test 06/28/24 05:06 Alanine Aminotransferase (ALT) 17 U/L (7-40) Alkaline Phosphatase 108 U/L (46-116) Aspartate Amino Transferase (AST) 34 U/L (13-40) Total Bilirubin 1.0 mg/dL (0.2-1.0) Urinalysis Test 06/19/24 17:02 Urine Color Yellow (Yellow) Urine Clarity Clear (Clear) Urine pH 6.5 (5.0-9.0) Urine Specific [place] 1.018 (1.001-1.035) Urine Protein 1+ (Negative) H Urine Ketones Negative (Negative) Urine Blood Negative /uL (Negative) Urine Nitrite Negative (Negative) Urine Bilirubin Negative (Negative) Urine Urobilinogen 4 mg/dL (Negative) H Urine Leukocyte Esterase Negative /uL (Negative) Urine RBC 1 /hpf (0 - 3) Urine WBC 5 /hpf (0 - 3) Urine Squamous Epithelial Cells None seen /hpf (<5) Urine Bacteria None seen /hpf (None Seen) Urine Hyaline Casts Few /lpf (0 - 2) Urine Mucus Few (None Seen) Urine Glucose Normal mg/dL (Normal) Microbiology Microbiology Date/Time Source Procedure Growth Status 06/23/24 01:15 Urine - [place] Urine Culture - Final Complete 06/19/24 15:08 Blood Blood Culture - Final NO GROWTH AFTER 5 DAYS OF INCUBATION. 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 Alvarez appreciated Echo 25 % ejection fraction Acute hypotension secondary to sepsis: Resolved History of Polysubstance abuse Cardiomyopathy Left ventricular mural thrombus therapeutic Lovenox, we will transition to Eliquis Patient [facility] be [facility] Plan discussed with: Patient Date of Service: Jun 28, 2024 Billing Provider: NIEVES CHÁVEZ MD Common Visit Codes: [id number] INP/OBS CARE(HIGH) NIEVES CHÁVEZ MD Jun 28, 2024 10:45
--- NOTE | 2024-06-28 10:51 | DVHDS2 ---
Discharge Summary Date of Admission Jun 19, 2024 at 19:15 Date of Discharge: Jun 28, 2024 Admitting Diagnosis Shortness of breath Wounds: None Labs/Diagnostic Data: Laboratory Results Test 06/28/24 05:06 06/25/24 11:30 06/24/24 18:54 06/19/24 18:06 White Blood Count 8.9 10^3/uL (4.4-10.8) Red Blood Count 5.09 10^6/uL (4.5-5.90) Hemoglobin 15.3 g/dL (13.5-17.5) Hematocrit 46.4 % (41.0-53.0) Mean Corpuscular Volume 91.1 fL (80.0-100.0) Mean Corpuscular Hemoglobin 30.0 pg (28.0-32.0) Mean Corpuscular Hemoglobin Concent 32.9 g/dL (32.0-36.0) Red Cell Distribution Width 18.8 % (11.8-14.3) Platelet Count 265 10^3/uL (140-450) Mean Platelet Volume 10.8 fL (6.9-10.8) Neutrophils (%) (Auto) 77.2 % (37.0-80.0) Lymphocytes (%) (Auto) 10.8 % (10.0-50.0) Monocytes (%) (Auto) 9.8 % (0.0-12.0) Eosinophils (%) (Auto) 1.6 % (0.0-7.0) Basophils (%) (Auto) 0.6 % (0.0-2.0) Neutrophils # (Auto) 6.9 10 ^3/uL (1.6-8.6) Lymphocytes # (Auto) 1.0 10 ^3/uL (0.4-5.4) Monocytes # (Auto) 0.9 10 ^3/uL (0-1.3) Eosinophils # (Auto) 0.1 10 ^3/uL (0-0.8) Basophils # (Auto) 0.1 10 ^3/uL (0-0.2) Nucleated Red Blood Cells 0.1 % Sodium Level 140 mmol/L (136-145) Potassium Level 3.4 mmol/L (3.5-5.1) Chloride Level 107 mmol/L (98-107) Carbon Dioxide Level 23 mmol/L (20-31) Anion Gap 10 (5-15) Blood Urea Nitrogen 8 mg/dL (9-23) Creatinine 0.73 mg/dL (0.700-1.30) Glomerular Filtration Rate Calc 102 mL/min (>90) BUN/Creatinine Ratio 11.0 (10.0-20.0) Serum Glucose 109 mg/dL (74-106) Calcium Level 9.0 mg/dL (8.7-10.4) Total Bilirubin 1.0 mg/dL (0.2-1.0) Aspartate Amino Transferase (AST) 34 U/L (13-40) Alanine Aminotransferase (ALT) 17 U/L (7-40) Alkaline Phosphatase 108 U/L (46-116) Total Protein 6.8 g/dL (5.7-8.2) Albumin 3.2 g/dL (3.2-4.8) Ammonia 21 umol/L (11-32) Influenza Type A Antigen Negative (Negative) Influenza Type B Antigen Negative (Negative) SARS-CoV-2 Antigen (Rapid) Negative (NEGATIVE) Lactic Acid Level 1.3 mmol/L (0.4-2.0) Troponin I High Sensitivity 18 ng/L (</=54) Test 06/19/24 17:23 06/19/24 17:02 06/19/24 15:12 06/19/24 15:08 POC Glucose 132 mg/dl (70-106) Urine Color Yellow (Yellow) Urine Clarity Clear (Clear) Urine pH 6.5 (5.0-9.0) Urine Specific [place] 1.018 (1.001-1.035) Urine Protein 1+ (Negative) Urine Ketones Negative (Negative) Urine Blood Negative /uL (Negative) Urine Nitrite Negative (Negative) Urine Bilirubin Negative (Negative) Urine Urobilinogen 4 mg/dL (Negative) Urine Leukocyte Esterase Negative /uL (Negative) Urine RBC 1 /hpf (0 - 3) Urine WBC 5 /hpf (0 - 3) Urine Squamous Epithelial Cells None seen /hpf (<5) Urine Bacteria None seen /hpf (None Seen) Urine Hyaline Casts Few /lpf (0 - 2) Urine Mucus Few (None Seen) Urine Glucose Normal mg/dL (Normal) Urine Opiates Screen Pos (NEGATIVE) Urine Fentanyl Screen Neg (NEGATIVE) Urine Barbiturates Screen Neg (NEGATIVE) Urine Phencyclidine Screen Neg (NEGATIVE) Urine Amphetamines Screen Neg (NEGATIVE) Urine Benzodiazepines Screen Neg (NEGATIVE) Urine Cocaine Screen Neg (NEGATIVE) Urine Cannabinoids Screen Pos (NEGATIVE) Blood Gas Specimen Type Arterial Blood Gas Sample Site Right brachial Blood Gas Patient Temperature 37.0 Arterial Blood Date Drawn Arterial Blood pH 7.454 (7.350-7.450) Arterial Blood Partial Pressure CO2 24.4 mmHg (35.0-48.0) Arterial Blood Partial Pressure O2 65.5 mmHg (83.0-108.0) Arterial Blood HCO3 16.7 mmol/L (21.0-28.0) Arterial Blood Oxygen Saturation 94.0 % (94.0-98.0) Arterial Blood Base Excess -4.6 mmol/L (-2.0-3.0) Arterial Blood Oxyhemoglobin 92.2 % (94.0-98.0) Arterial Blood Carboxyhemoglobin 1.4 % (0.5-1.5) Arterial Blood Methemoglobin 0.5 % (0.0-1.5) Mitesh Test N/a Blood Gas Total Hemoglobin 18.40 g/dL (13.5-17.5) Blood Gas Modality Room air FiO2 % 21.0 Blood Gas Critical Value Read Back Yes Blood Gas Notified Whom Dr. bonilla Blood Gas Notified Time [id number] Blood Gas Notified By B-Type Natriuretic Peptide 2669.91 pg/mL (0-100) Plasma/Serum Blood Alcohol 7.3 mg/dL (<10) Other Laboratory Tests 06/28/24 05:06 Brief Hx & Hospital Course: 63-year-old male with a history of CVA congestive heart failure hypotension polysubstance abuse cardiomyopathy came in for generalized weakness shortness of breaths found to have sepsis secondary to urinary tract infection treated with Rocephin blood cultures urine cultures came negative new CVA was ruled out CT head showed old CVA. Ejection fraction 25 percent CHF treated with the Lasix spironolactone Coreg. The patient has had a left ventricular mural thrombus for which he was placed on therapeutic Lovenox . we will be transferred to [facility]. Patient being discharged to long term facility for rehab and for IV antibiotics. Physical therapist recommended long term facility placement. 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 Alvarez appreciated Echo 25 % ejection fraction Acute hypotension secondary to sepsis: Resolved History of Polysubstance abuse Cardiomyopathy Left ventricular mural thrombus therapeutic Lovenox, we will transition to Eliquis Discharge Disposition: [facility] Facility Discharge Instruct/Medications Diet: Cardiac 2g Na,low cholest Activity: Light activity Follow Up/Referral: Follow up with the custodial Medications: Rocephin 1 g IV daily for two weeks for UTI Lovenox 100 mg IV q.12h for one month for left ventricular thrombus 39 (Time Taken for discharge summary 39 minutes) Discharge Statement: "Patient was advised to return to the ER or call 911 if any headaches, dizziness, shortness of breath, chest pain, abdominal pain, bleeding, fevers, or worsening of medical condition. Patient was counseled about treatment plan, medications, possible side effects, patientverbalized understanding. All questions were answered to the best of my ability. This discharge took greater then 30 minutes in planning, reviewing documentation, counseling the patient, and discussing with other team members." ASSESSMENT ASSESSMENT Hospital Course Marginal improvement Assessment Sepsis secondary to acute urinary tract infection: Acute Hypoxic respiratory failure Acute urinary tract infection: Blood cx neg, Urine cx Neg, continue Rocephin for two weeks Acute metabolic encephalopathy New CVA ruled out, CT head shows old right frontal infarct History of CVA Acute on chronic congestive heart failure: Lasix spironolactone, Coreg consult for Dr. Alvarez appreciated Echo 25 % ejection fraction Acute hypotension secondary to sepsis: Resolved History of Polysubstance abuse Cardiomyopathy Left ventricular mural thrombus therapeutic Lovenox, we will transition to Eliquis Date of Service: Jun 28, 2024 Billing Provider: NIEVES CHÁVEZ MD Common Visit Codes: 69343-WOJ/OBS DISCH DAY >30min NIEVES CHÁVEZ MD Jun 28, 2024 10:51
[2024-06-28 13:00] VITALS: BP 128/56; PULSE 60; RESP 14; TEMP 98; O2SAT 98
[2024-06-28 17:00] VITALS: BP 104/47; PULSE 68; RESP 16; TEMP 98.2; O2SAT 98
== END 2024-06-28 19:57 | DRG 871 ==
LOC: ER 14:29 → EDBD 14:29 → TELE 19:15 → TELE-EAST 21:10
PROVIDERS: ADMIT Nurse Practitioner; ATTEND Family Medicine
PROC: 05HD33Z Insertion of Infusion Device into Right Cephalic Vein, Percutaneous Approach (ICD-10-PCS; principal; 2024-06-28)
PROC: B54MZZA Ultrasonography of Right Upper Extremity Veins, Guidance (ICD-10-PCS; 2024-06-28)
DX: A41.9 Sepsis, unspecified organism (principal); G93.41 Metabolic encephalopathy; J96.01 Acute respiratory failure with hypoxia; I50.43 Acute on chronic combined systolic (congestive) and diastolic (congestive) heart failure; N39.0 Urinary tract infection, site not specified; I42.9 Cardiomyopathy, unspecified; I51.3 Intracardiac thrombosis, not elsewhere classified; I95.89 Other hypotension; F19.10 Other psychoactive substance abuse, uncomplicated; Z86.73 Personal history of transient ischemic attack (TIA), and cerebral infarction without residual deficits; Z88.6 Allergy status to analgesic agent; Z88.5 Allergy status to narcotic agent; Z86.711 Personal history of pulmonary embolism; I25.2 Old myocardial infarction
CPT/HCPCS: 36415; 36600; 70450; 71045; 80048; 80053; 80307; 80320; 81001; 82140; 82805; 82962; 83605; 83880; 84484; 85025; 87040; 87086; 87426; 87804; 93005; 93306; 96365; 96368; 96375; 97110; 97116; 97163; 97530; 99291; G0378; Q9956